=== PATIENT | male | born 1950 | race Caucasian/White ===

== ENCOUNTER 2019-10-19 08:32 | Observation (INO) ==
[2019-10-19] MEDS ORDERED: ZOFRAN INJ 4 MG VIAL IVP PRN (10:00)
[2019-10-19] MEDS ORDERED: NS 1000 ML 1,000 ML IV ONE (10:00)
[2019-10-19] MEDS ORDERED: NS 1000 ML 1,000 ML ONE ×2 (10:01→11:29)
[2019-10-19 10:28] LABS: BASOPHILS % (AUTO) 0.3 % (0.2-1.0); HEMATOCRIT 40.5 % (42.0-54.0); HEMOGLOBIN 13.7 g/dL (13.5-18.0); LYMPHOCYTES # (AUTO) 0.6 X10^3/uL (1.3-2.9); LYMPHOCYTES % (AUTO) 17.9 % (21.0-51.0); MEAN CORPUSCULAR HEMOGLOBIN 29.7 pg (27.0-34.0); MEAN CORPUSCULAR HGB CONC 33.8 g/dL (33.0-35.0); MEAN CORPUSCULAR VOLUME 87.8 fL (80.0-100.0); MEAN PLATELET VOLUME 6.9 fL (7.4-11.0); MONOCYTES # (AUTO) 0.2 x10^3/uL (0.3-0.8); MONOCYTES % (AUTO) 6.8 % (0.0-13.0); NEUTROPHILS # (AUTO) 2.6 x10^3/uL (2.2-4.8); PLATELET COUNT 113 X10^3/uL (150.0-450.0); RED BLOOD COUNT 4.61 X10^6/uL (4.7-6.0); RED CELL DISTRIBUTION WIDTH 13.5 % (11.6-16.5); WHITE BLOOD COUNT 3.4 X10^3/uL (3.6-10.0)
[2019-10-19 10:39] LABS: ALANINE AMINOTRANSFERASE 21 Units/L (12-78); ALBUMIN 3.1 g/dL (3.4-5.0); ALKALINE PHOSPHATASE 58 Units/L (46-116); ASPARTATE AMINO TRANSFERASE 21 Units/L (15-37); BLOOD UREA NITROGEN 13 mg/dL (7-18); CALCIUM 8.3 mg/dL (8.5-10.1); CHLORIDE 105 mmol/L (98-107); CREATININE 1.07 mg/dL (0.70-1.30); SODIUM 139 mmol/L (136-145); TOTAL PROTEIN 6.4 g/dL (6.4-8.2); eGFR NON BLACK RACES > 60 (>60)
[2019-10-19 10:49] VITALS: BMI 28.0
[2019-10-19] MEDS ORDERED: PREVNAR 13 IM ONE (10:49)
--- NOTE | 2019-10-19 11:20 | RAD ---
HISTORYfever, weakness onset a few weeksSTUDYAcute abdominal series, four viewsCOMPARISONNoneFINDINGSThe heart size is normal and the descending aorta is tortuous. The lungs are grossly clear. There is no effusion.The bowel gas pattern is unremarkable. There is no free air or fluid level or abnormal soft tissue calcification. There are mild degenerative osteophytes in the lumbar spine.IMPRESSIONNo acute diseaseElectronically signed by: FREDERICK DUVAL (Oct 19, 2019 11:19:45)
[2019-10-19] MEDS: NS 1000 ML 1,000 ML IV SCH ×3 (11:34→22:15)
[2019-10-19] MEDS: TYLENOL 325 MG TAB PO PRN (17:10)
[2019-10-20 00:54] LABS: BILIRUBIN,URINE NEGATIVE (NEGATIVE); BLOOD/HEMOGLOBIN,URINE NEGATIVE (NEGATIVE); GLUCOSE, URINE NEGATIVE (NEGATIVE); KETONES,URINE NEGATIVE (NEGATIVE); LEUKOCYTE ESTERASE ,URINE NEGATIVE (NEGATIVE); NITRITES,URINE NEGATIVE (NEGATIVE); PH,URINE 6.5 (5.0 - 8.0); PROTEIN,URINE NEGATIVE (NEGATIVE); UROBILINOGEN,URINE NORMAL (NORMAL)
[2019-10-20] MEDS: TYLENOL 325 MG TAB PO PRN ×2 (00:56→13:00)
[2019-10-20 01:04] LABS: APPEARANCE,URINE CLEAR (CLEAR); COLOR,URINE YELLOW (YELLOW)
[2019-10-20] MEDS: NS 1000 ML 1,000 ML IV SCH ×5 (04:23→22:00)
[2019-10-20 05:10] LABS: ABG BASE EXCESS 0.8 mmol/L (-2.0-2.0)
[2019-10-20 05:11] LABS: ABG ALLEN TEST POS
[2019-10-20 05:14] LABS: BASOPHILS % (AUTO) 0.4 % (0.2-1.0); EOSINOPHILS % (AUTO) 0.1 % (0.9-2.9); HEMATOCRIT 34.6 % (42.0-54.0); HEMOGLOBIN 11.8 g/dL (13.5-18.0); LYMPHOCYTES # (AUTO) 0.8 X10^3/uL (1.3-2.9); LYMPHOCYTES % (AUTO) 21.7 % (21.0-51.0); MEAN CORPUSCULAR HEMOGLOBIN 30.2 pg (27.0-34.0); MEAN CORPUSCULAR HGB CONC 34.2 g/dL (33.0-35.0); MEAN CORPUSCULAR VOLUME 88.2 fL (80.0-100.0); MEAN PLATELET VOLUME 7.4 fL (7.4-11.0); MONOCYTES # (AUTO) 0.2 x10^3/uL (0.3-0.8); NEUTROPHILS # (AUTO) 2.7 x10^3/uL (2.2-4.8); NEUTROPHILS % (AUTO) 72.8 % (42.0-75.0); PLATELET COUNT 96 X10^3/uL (150.0-450.0); RED BLOOD COUNT 3.92 X10^6/uL (4.7-6.0); RED CELL DISTRIBUTION WIDTH 13.5 % (11.6-16.5); WHITE BLOOD COUNT 3.7 X10^3/uL (3.6-10.0)
[2019-10-20 05:30] LABS: ALANINE AMINOTRANSFERASE 21 Units/L (12-78); ALBUMIN 2.4 g/dL (3.4-5.0); ALKALINE PHOSPHATASE 48 Units/L (46-116); ASPARTATE AMINO TRANSFERASE 22 Units/L (15-37); BLOOD UREA NITROGEN 9 mg/dL (7-18); CALCIUM 7.7 mg/dL (8.5-10.1); CARBON DIOXIDE 25.1 mmol/L (21-32); CHLORIDE 109 mmol/L (98-107); CREATININE 0.91 mg/dL (0.70-1.30); SODIUM 141 mmol/L (136-145); TOTAL PROTEIN 5.4 g/dL (6.4-8.2); eGFR NON BLACK RACES > 60 (>60)
--- NOTE | 2019-10-20 06:17 | RAD ---
HISTORYFeverSTUDYChest AP portableCOMPARISONNoneFINDINGSThe heart is within normal limits in size. The alissa are normal. The lung goins are clear. No pleural effusions are identified. Bony thorax is unremarkable.IMPRESSIONNo significant abnormality identifiedElectronically signed by: JESUS TELLO (Oct 20, 2019 06:16:21)
[2019-10-20] MEDS: PULMICORT NEB TX 0.5 MG NEB SCH ×2 (08:58→20:55)
[2019-10-20] MEDS: DUONEB 0.5 MG/3 MG (3 mL) NEB SCH ×4 (08:58→20:54)
--- NOTE | 2019-10-20 09:04 | DR.H&P ---
H&P - History & Physical for Day of: H&P Date: 10/19/19 - Chief Complaint Chief Complaint: FEVER, WEAKNESS, BODY ACHES, HYPOTENSION - History of Present Illness History of Present Illness: IS A 69 YEAR OLD WHITE MALE, PATIENT OF [facility]. DEL CONSULTED US FOR DIRECT ADMISSION DUE TO FEVER, COUGH, SHORTNESS OF BREATH, WEAKNESS, BODY ACHES, AND HYPOTENSION. HIS BLOOD PRESSURE IN THE OFFICE WAS NOTED TO BE 60s/40s. SYMPTOMS STARTED APPROXIMATELY FOUR DAYS PRIOR AND HAVE PERSISTENTLY WORSENED. HIS PMH INCLUDES: GERD, OSTEOARTHRITIS, AND HAND SURGERY. ON ARRIVAL TO THE HOSPITAL, VITALS WERE 99.3-41-65-20-106/68. LABS WERE OBTAINED. ABNORMAL LAB VALUES INCLUDE THE FOLLOWING: WBC 3.4, RBC 4.61, HCT 40.5, PLT COUNT 113, GLUCOSE 101, CALCIUM 8.3, ALBUMIN 3.1. COVID-19 POSITIVE. AN ACUTE ABDOMEN SERIES WAS OBTAINED AND REVEALED: No acute disease. A CHEST XRAY WAS OBTAINED AND REVEALED: No significant abnormality identified. WE WILL START HIM ON NORMAL SALINE AT 125 ML/HR, LEVAQUIN 500MG IV DAILY, ZOFRAN 4MG IV Q4H PRN, DUONEBS QID, PULMICORT NEBS BID. WE WILL ADMINISTER A ONE LITER NORMAL SALINE BOLUS. OTHERWISE, WE WILL FOLLOW UP WITH AM LABS, CHEST XRAY, AND CONTINUE TO MONITOR. - Past Medical History Past Medical History: Arthritis, GERD - Past Surgical History Surgical History: Ortho Surgery Additional Surgical History: HAND SURGERY - Family History Family Medical History: Cancer, Hypertension - Social History Does any household member use tobacco: No Alcohol Use: None Drug Use: None - Medications Home Medications: No Known Drug Allergies Allergy (Verified 10/19/19 10:49) CONTINUE taking the following medications NK 10/19/19 [History] - Review of Systems Constitutional: See HPI, Fever, Chills, Weakness Eyes: No Symptoms Reported ENT: No Symptoms Reported Respiratory: Cough, Shortness of Breath Cardiovascular: No Symptoms Reported Gastrointestinal: No Symptoms Reported Genitourinary: No Symptoms Reported Musculoskeletal: No Symptoms Reported Skin: No Symptoms Reported Neurological: Weakness - Physical Exam Vital Signs: Temperature 100 F Pulse Rate 63 Respiratory Rate 19 Blood Pressure 111/56 O2 Sat by Pulse Oximetry 95 Oriented: Normal Eyes: Normal Ear: Normal Nose: Normal Throat: Normal Respiratory: Diminished Throughout Cardiovascular: Normal : Normal Auscultation: Bowel Sounds: Normal Palpation: Normal Tenderness: Normal Skin: Normal Musculoskeletal: Normal Psychiatric: Normal Mood Description: Calm Affect: Normal Speech Pattern: Clear - Assessment/Plan (1) COVID-19 Status: Acute Plan: ADMIT, NORMAL SALINE AT 125 ML/HR, LEVAQUIN 500MG IV DAILY, ZOFRAN 4MG IV Q4H PRN, DUONEBS QID, PULMICORT NEBS BID (2) Acute bronchitis Qualifiers: Bronchitis organism: unspecified organism Qualified Code(s): J20.9 - Acute bronchitis, unspecified Status: Acute (3) Hypotension Qualifiers: Hypotension type: hypotension due to hypovolemia Qualified Code(s): I95.89 - Other hypotension; E86.1 - Hypovolemia Status: Acute (4) Weakness Status: Acute (5) Fever Qualifiers: Fever type: unspecified Qualified Code(s): R50.9 - Fever, unspecified Status: Acute - Allergies Allergies/Adverse Reactions: Allergies Allergy/AdvReac Type Severity Reaction Status Date / Time No Known Drug Allergies Allergy Verified 10/19/19 10:49
[2019-10-20] MEDS: LEVAQUIN PREMIX IV 500 MG 500 MG/100 ML BAG IV SCH (10:15)
[2019-10-20] MEDS ORDERED: MOTRIN TAB 800 MG PO ONE (15:28)
[2019-10-20] MEDS: MOTRIN TAB 800 MG PO PRN (15:35)
[2019-10-20] MEDS: LOVENOX INJ 40 MG SYR SC SCH (22:02)
[2019-10-21] MEDS: NS 1000 ML 1,000 ML IV SCH ×4 (02:24→18:10)
[2019-10-21 05:27] LABS: BASOPHILS % (AUTO) 0.2 % (0.2-1.0); EOSINOPHILS % (AUTO) 0.1 % (0.9-2.9); HEMATOCRIT 33.6 % (42.0-54.0); HEMOGLOBIN 11.5 g/dL (13.5-18.0); LYMPHOCYTES # (AUTO) 0.6 X10^3/uL (1.3-2.9); LYMPHOCYTES % (AUTO) 14.7 % (21.0-51.0); MEAN CORPUSCULAR HEMOGLOBIN 30.3 pg (27.0-34.0); MEAN CORPUSCULAR HGB CONC 34.4 g/dL (33.0-35.0); MEAN CORPUSCULAR VOLUME 88.1 fL (80.0-100.0); MEAN PLATELET VOLUME 7.6 fL (7.4-11.0); MONOCYTES # (AUTO) 0.3 x10^3/uL (0.3-0.8); MONOCYTES % (AUTO) 7.7 % (0.0-13.0); NEUTROPHILS # (AUTO) 3.4 x10^3/uL (2.2-4.8); NEUTROPHILS % (AUTO) 77.3 % (42.0-75.0); PLATELET COUNT 106 X10^3/uL (150.0-450.0); RED BLOOD COUNT 3.81 X10^6/uL (4.7-6.0); RED CELL DISTRIBUTION WIDTH 13.9 % (11.6-16.5); WHITE BLOOD COUNT 4.3 X10^3/uL (3.6-10.0)
[2019-10-21 05:32] LABS: ALANINE AMINOTRANSFERASE 29 Units/L (12-78); ALBUMIN 2.2 g/dL (3.4-5.0); ALKALINE PHOSPHATASE 53 Units/L (46-116); ASPARTATE AMINO TRANSFERASE 29 Units/L (15-37); BLOOD UREA NITROGEN 7 mg/dL (7-18); CALCIUM 7.5 mg/dL (8.5-10.1); CARBON DIOXIDE 23.6 mmol/L (21-32); CHLORIDE 110 mmol/L (98-107); COR CA(FOR HYPOALB) 8.9 mg/dL (8.5-10.1); COR NA(FOR HYPERGLY) 142 mmol/L (136-145); CREATININE 0.79 mg/dL (0.70-1.30); SODIUM 142 mmol/L (136-145); TOTAL PROTEIN 5.3 g/dL (6.4-8.2); eGFR NON BLACK RACES > 60 (>60)
[2019-10-21] MEDS: LEVAQUIN PREMIX IV 500 MG 500 MG/100 ML BAG IV SCH (08:01)
[2019-10-21] MEDS: MOTRIN TAB 800 MG PO PRN (08:02)
[2019-10-21] MEDS: DUONEB 0.5 MG/3 MG (3 mL) NEB SCH ×3 (09:30→18:13)
[2019-10-21] MEDS: PULMICORT NEB TX 0.5 MG NEB SCH ×2 (09:30→21:20)
[2019-10-21] MEDS ORDERED: REMDESIVIR (INVESTIGATIONAL DRUG GS-5734) 200 MG in NS 250 ML IV 250 ML IV NR (09:30)
--- NOTE | 2019-10-21 11:40 | PCM.PROG ---
Progress Note - Progress Note for Day of Date of Exam: 10/20/19 - Subjective Subjective: IS BEING TREATED FOR COVID-19, ACUTE BRONCHITIS, HYPOTENSION, WEAKNESS, AND FEVER. TODAY, HE IS ALERT AND ORIENTED, LYING IN BED ON MORNING ROUNDS. HE CONTINUES WITH COMPLAINTS OF COUGH, WEAKNESS, AND SHORTNESS OF BREATH. HE RECEIVED A NORMAL SALINE BOLUS AND IV FLUIDS THROUGHOUT THE NIGHT. HIS BLOOD PRESSURE HAS SLIGHTLY IMROVED. ON EXAMINATION, HEART IS REGULAR IN RATE AND RHYTHM. BILATERAL LUNGS ARE NOTED WITH SCATTERED WHEEZING THROUGHOUT. ABDOMEN IS ROUND, SOFT, AND NON-TENDER WITH NORMAL BOWEL SOUNDS NOTED IN ALL QUADRNATS. HIS VITALS THIS MORNING ARE: 99.5-67-16-98%-119/69. LABS WERE OBTAINED. ABNORMAL LAB VALUES INCLUDE THE FOLLOWING: RBC 3.92, HGB 11.8, HCT 34.6, PLT COUNT 96, CHLORIDE 109, GLUCOSE 102, CALCIUM 7.7, FERRITIN 426, CRP 70.60, TOTAL PROTEIN 5.4, ALBUMIN 2.4. BLOOD CULTURES ARE PENDING. HE IS CURRENTLY RECEIVING NORMAL SALINE AT 125 ML/HR, LEVAQUIN 500MG IV DAILY, ZOFRAN 4MG IV Q4H PRN, DUONEBS QID, PULMICORT NEBS BID, LOVENOX 40MG SC DAILY. WE WILL CONTINUE WITH CURRENT PLAN OF CARE TODAY. OTHERWISE, WE WILL FOLLOW UP WITH AM LABS AND CHEST XRAY AND CONTINUE TO MONITOR. - Past Medical Family Social History Past Med/Fam/Surg Hx: No changes since H&P Allergies: Allergies No Known Drug Allergies Allergy (Verified 10/19/19 10:49) - Review of Systems ROS: No change since H&P - Vital Signs and I&O's Vital Signs: Temperature 99.0 F Pulse Rate 55 Respiratory Rate 21 Blood Pressure 115/70 O2 Sat by Pulse Oximetry 95 Intake and Output: Intake & Output 10/18/19 10/19/19 10/20/19 10/21/19 11:59 11:59 11:59 11:59 Intake Total 2880 / 2880 5000 / 5000 Balance 2880 / 2880 5000 / 5000 - Physical Exam Oriented: Normal Eyes: Normal Ear: Normal Nose: Normal Throat: Normal Respiratory: Generalized, Wheezes Cardiovascular: Normal : Normal Auscultation: Bowel Sounds: Normal Palpation: Normal Tenderness: Normal Skin: Normal Musculoskeletal: Normal Psychiatric: Normal Mood Description: Calm Affect: Normal Speech Pattern: Clear, Appropriate - Laboratory and Diagnostics Result Diagrams: 10/21/19 04:58 10/21/19 04:58 Labs: Laboratory WBC 4.3 X10^3/uL (3.6-10.0) 10/21/19 04:58 RBC 3.81 X10^6/uL (4.7-6.0) L 10/21/19 04:58 Hgb 11.5 g/dL (13.5-18.0) L 10/21/19 04:58 Hct 33.6 % (42.0-54.0) L 10/21/19 04:58 MCV 88.1 fL (80.0-100.0) 10/21/19 04:58 MCH 30.3 pg (27.0-34.0) 10/21/19 04:58 MCHC 34.4 g/dL (33.0-35.0) 10/21/19 04:58 RDW 13.9 % (11.6-16.5) 10/21/19 04:58 Plt Count 106 X10^3/uL (150.0-450.0) L 10/21/19 04:58 MPV 7.6 fL (7.4-11.0) 10/21/19 04:58 Neut % (Auto) 77.3 % (42.0-75.0) H 10/21/19 04:58 Lymph % (Auto) 14.7 % (21.0-51.0) L 10/21/19 04:58 [place] % (Auto) 7.7 % (0.0-13.0) 10/21/19 04:58 Eos % (Auto) 0.1 % (0.9-2.9) L 10/21/19 04:58 Baso % (Auto) 0.2 % (0.2-1.0) 10/21/19 04:58 Neut # (Auto) 3.4 x10^3/uL (2.2-4.8) 10/21/19 04:58 Lymph # (Auto) 0.6 X10^3/uL (1.3-2.9) L 10/21/19 04:58 [place] # (Auto) 0.3 x10^3/uL (0.3-0.8) 10/21/19 04:58 Eos # (Auto) 0.0 x10^3/uL (0.0-0.2) 10/21/19 04:58 Baso # (Auto) 0.0 X10^3/uL (0.0-0.1) 10/21/19 04:58 Absolute Nucleated RBC 0.0 /100WBC 10/21/19 04:58 Sample Site Rrad 10/20/19 05:03 ABG pH 7.470 (7.35-7.45) H 10/20/19 05:03 ABG pCO2 33.0 mmHg (35.0-45.0) L 10/20/19 05:03 ABG pO2 77.0 mmHg (80.0-100.0) L 10/20/19 05:03 ABG HCO3 24.0 mmol/L (22-26) 10/20/19 05:03 ABG O2 Saturation 96.0 % (90-100) 10/20/19 05:03 ABG Base Excess 0.8 mmol/L (-2.0-2.0) 10/20/19 05:03 Richard Test Pos 10/20/19 05:03 A-a Gradient 31.0 mmHg 10/20/19 05:03 FiO2 21.0 10/20/19 05:03 Blood Gas Comments Dominga abg well-mtf 10/20/19 05:03 Sodium 142 mmol/L (136-145) 10/21/19 04:58 Corrected Sodium 142 mmol/L (136-145) 10/21/19 04:58 Potassium 3.8 mmol/L (3.5-5.1) 10/21/19 04:58 Chloride 110 mmol/L (98-107) H 10/21/19 04:58 Carbon Dioxide 23.6 mmol/L (21-32) 10/21/19 04:58 BUN 7 mg/dL (7-18) 10/21/19 04:58 Creatinine 0.79 mg/dL (0.70-1.30) 10/21/19 04:58 Est GFR (MDRD) Af Amer > 60 (>60) 10/21/19 04:58 Est GFR (MDRD) Non-Af > 60 (>60) 10/21/19 04:58 Glucose 116 mg/dL (65-99) H 10/21/19 04:58 Calcium 7.5 mg/dL (8.5-10.1) L 10/21/19 04:58 Corrected Calcium 8.9 mg/dL (8.5-10.1) 10/21/19 04:58 Ferritin 473 ng/mL (26-388) H 10/21/19 04:58 Total Bilirubin 0.30 mg/dL (0.2-1.0) 10/21/19 04:58 AST 29 Units/L (15-37) 10/21/19 04:58 ALT 29 Units/L (12-78) 10/21/19 04:58 Alkaline Phosphatase 53 Units/L (46-116) 10/21/19 04:58 C-Reactive Protein 102.80 mg/L (0-3.0) H 10/21/19 04:58 Total Protein 5.3 g/dL (6.4-8.2) L 10/21/19 04:58 Albumin 2.2 g/dL (3.4-5.0) L 10/21/19 04:58 Globulin 3.1 g/dL (2.5-4.5) 10/21/19 04:58 Albumin/Globulin Ratio 0.7 Ratio (1.1-2.1) L 10/21/19 04:58 Specimen Type Clean catch urine 10/19/19 00:44 Urine Color Yellow (YELLOW) 10/19/19 00:44 Urine Appearance Clear (CLEAR) 10/19/19 00:44 Urine pH 6.5 (5.0 - 8.0) 10/19/19 00:44 Ur Specific [place] 1.010 (1.000-1.030) 10/19/19 00:44 Urine Protein Negative (NEGATIVE) 10/19/19 00:44 Urine Glucose (UA) Negative (NEGATIVE) 10/19/19 00:44 Urine Ketones Negative (NEGATIVE) 10/19/19 00:44 Urine Occult Blood Negative (NEGATIVE) 10/19/19 00:44 Urine Nitrite Negative (NEGATIVE) 10/19/19 00:44 Urine Bilirubin Negative (NEGATIVE) 10/19/19 00:44 Urine Urobilinogen Normal (NORMAL) 10/19/19 00:44 Ur Leukocyte Esterase Negative (NEGATIVE) 10/19/19 00:44 Stool Description 200g,brown,soft form 10/20/19 22:00 Stl Occult Blood (IFOB) Negative (NEGATIVE) 10/20/19 22:00 SARS-CoV-2 (PCR) Cancelled 10/19/19 10:26 SARS-CoV-2 (PCR) Positive (NEGATIVE) A 10/19/19 10:26 - Plan (1) COVID-19 Status: Acute Plan: NORMAL SALINE AT 125 ML/HR, LEVAQUIN 500MG IV DAILY, LOVENOX 40MG SC DAILY, ZOFRAN 4MG IV Q4H PRN, DUONEBS QID, PULMICORT NEBS BID (2) Acute bronchitis Status: Acute Qualifiers: Bronchitis organism: unspecified organism Qualified Code(s): J20.9 - Acute bronchitis, unspecified (3) Hypotension Status: Acute Qualifiers: Hypotension type: hypotension due to hypovolemia Qualified Code(s): I95.89 - Other hypotension; E86.1 - Hypovolemia (4) Weakness Status: Acute (5) Fever Status: Acute Qualifiers: Fever type: unspecified Qualified Code(s): R50.9 - Fever, unspecified
--- NOTE | 2019-10-21 11:44 | PCM.PROG ---
Progress Note - Progress Note for Day of Date of Exam: 10/21/19 - Subjective Subjective: IS BEING TREATED FOR COVID-19, ACUTE BRONCHITIS, HYPOTENSION, WEAKNESS, AND FEVER. TODAY, HE IS ALERT AND ORIENTED, LYING IN BED ON MORNING ROUNDS. HE CONTINUES WITH COMPLAINTS OF INCREASED COUGH AND SHORTNESS OF BREATH. HE HAS BEEN FEBRILE THROUGHOUT THE NIGHT. HE CONTINUED WITH H YPOTENSION THROUGHOUT THE DAY YESTERDAY. ON EXAMINATION TODAY, HEART IS REGULAR IN RATE AND RHYTHM. BILATERAL LUNGS CONTINUE WITH SCATTERED WHEEZING THROUGHOUT. ABDOMEN IS ROUND, SOFT, AND NON-TENDER WITH NORMAL BOWEL SOUNDS NOTED IN ALL QUADRNATS. HIS VITALS THIS MORNING ARE: 99.5-55-20-95%-115/70. LABS WERE OBTAINED. ABNORMAL LAB VALUES INCLUDE THE FOLLOWING: RBC 3.81, HGB 11.5, HCT 33.6, PLT COUNT 106, CHLORIDE 110, GLUCOSE 116, CALCIUM 7.5, FERRITIN 473, CRP INCREASED TO 102.8, TOTAL PROTEIN 5.3, ALBUMIN 2.2. BLOOD CULTURES ARE PENDING. HE IS CURRENTLY RECEIVING NORMAL SALINE AT 125 ML/HR, LEVAQUIN 500MG IV DAILY, ZOFRAN 4MG IV Q4H PRN, DUONEBS QID, PULMICORT NEBS BID, LOVENOX 40MG SC DAILY. TODAY, WE WILL START REMDESIVIR 200MG IV X 1 DOSE, THEN 100MG IV DAILY. OTHERWISE, WE WILL CONTINUE WITH CURRENT PLAN OF CARE. WE WILL FOLLOW UP WITH AM LABS AND CHEST XRAY AND CONTINUE TO MONITOR. - Past Medical Family Social History Past Med/Fam/Surg Hx: No changes since H&P Allergies: Allergies No Known Drug Allergies Allergy (Verified 10/19/19 10:49) - Review of Systems ROS: No change since H&P - Vital Signs and I&O's Vital Signs: Temperature 99.0 F Pulse Rate 55 Respiratory Rate 21 Blood Pressure 115/70 O2 Sat by Pulse Oximetry 95 Intake and Output: Intake & Output 10/18/19 10/19/19 10/20/19 10/21/19 11:59 11:59 11:59 11:59 Intake Total 2880 / 2880 5000 / 5000 Balance 2880 / 2880 5000 / 5000 - Physical Exam Oriented: Normal Eyes: Normal Ear: Normal Nose: Normal Throat: Normal Respiratory: Generalized, Wheezes Cardiovascular: Normal : Normal Auscultation: Bowel Sounds: Normal Palpation: Normal Tenderness: Normal Skin: Normal Musculoskeletal: Normal Psychiatric: Normal Mood Description: Calm Affect: Normal Speech Pattern: Clear, Appropriate - Laboratory and Diagnostics Result Diagrams: 10/21/19 04:58 10/21/19 04:58 Labs: Laboratory WBC 4.3 X10^3/uL (3.6-10.0) 10/21/19 04:58 RBC 3.81 X10^6/uL (4.7-6.0) L 10/21/19 04:58 Hgb 11.5 g/dL (13.5-18.0) L 10/21/19 04:58 Hct 33.6 % (42.0-54.0) L 10/21/19 04:58 MCV 88.1 fL (80.0-100.0) 10/21/19 04:58 MCH 30.3 pg (27.0-34.0) 10/21/19 04:58 MCHC 34.4 g/dL (33.0-35.0) 10/21/19 04:58 RDW 13.9 % (11.6-16.5) 10/21/19 04:58 Plt Count 106 X10^3/uL (150.0-450.0) L 10/21/19 04:58 MPV 7.6 fL (7.4-11.0) 10/21/19 04:58 Neut % (Auto) 77.3 % (42.0-75.0) H 10/21/19 04:58 Lymph % (Auto) 14.7 % (21.0-51.0) L 10/21/19 04:58 [place] % (Auto) 7.7 % (0.0-13.0) 10/21/19 04:58 Eos % (Auto) 0.1 % (0.9-2.9) L 10/21/19 04:58 Baso % (Auto) 0.2 % (0.2-1.0) 10/21/19 04:58 Neut # (Auto) 3.4 x10^3/uL (2.2-4.8) 10/21/19 04:58 Lymph # (Auto) 0.6 X10^3/uL (1.3-2.9) L 10/21/19 04:58 [place] # (Auto) 0.3 x10^3/uL (0.3-0.8) 10/21/19 04:58 Eos # (Auto) 0.0 x10^3/uL (0.0-0.2) 10/21/19 04:58 Baso # (Auto) 0.0 X10^3/uL (0.0-0.1) 10/21/19 04:58 Absolute Nucleated RBC 0.0 /100WBC 10/21/19 04:58 Sample Site Rrad 10/20/19 05:03 ABG pH 7.470 (7.35-7.45) H 10/20/19 05:03 ABG pCO2 33.0 mmHg (35.0-45.0) L 10/20/19 05:03 ABG pO2 77.0 mmHg (80.0-100.0) L 10/20/19 05:03 ABG HCO3 24.0 mmol/L (22-26) 10/20/19 05:03 ABG O2 Saturation 96.0 % (90-100) 10/20/19 05:03 ABG Base Excess 0.8 mmol/L (-2.0-2.0) 10/20/19 05:03 Richard Test Pos 10/20/19 05:03 A-a Gradient 31.0 mmHg 10/20/19 05:03 FiO2 21.0 10/20/19 05:03 Blood Gas Comments Dominga abg well-mtf 10/20/19 05:03 Sodium 142 mmol/L (136-145) 10/21/19 04:58 Corrected Sodium 142 mmol/L (136-145) 10/21/19 04:58 Potassium 3.8 mmol/L (3.5-5.1) 10/21/19 04:58 Chloride 110 mmol/L (98-107) H 10/21/19 04:58 Carbon Dioxide 23.6 mmol/L (21-32) 10/21/19 04:58 BUN 7 mg/dL (7-18) 10/21/19 04:58 Creatinine 0.79 mg/dL (0.70-1.30) 10/21/19 04:58 Est GFR (MDRD) Af Amer > 60 (>60) 10/21/19 04:58 Est GFR (MDRD) Non-Af > 60 (>60) 10/21/19 04:58 Glucose 116 mg/dL (65-99) H 10/21/19 04:58 Calcium 7.5 mg/dL (8.5-10.1) L 10/21/19 04:58 Corrected Calcium 8.9 mg/dL (8.5-10.1) 10/21/19 04:58 Ferritin 473 ng/mL (26-388) H 10/21/19 04:58 Total Bilirubin 0.30 mg/dL (0.2-1.0) 10/21/19 04:58 AST 29 Units/L (15-37) 10/21/19 04:58 ALT 29 Units/L (12-78) 10/21/19 04:58 Alkaline Phosphatase 53 Units/L (46-116) 10/21/19 04:58 C-Reactive Protein 102.80 mg/L (0-3.0) H 10/21/19 04:58 Total Protein 5.3 g/dL (6.4-8.2) L 10/21/19 04:58 Albumin 2.2 g/dL (3.4-5.0) L 10/21/19 04:58 Globulin 3.1 g/dL (2.5-4.5) 10/21/19 04:58 Albumin/Globulin Ratio 0.7 Ratio (1.1-2.1) L 10/21/19 04:58 Specimen Type Clean catch urine 10/19/19 00:44 Urine Color Yellow (YELLOW) 10/19/19 00:44 Urine Appearance Clear (CLEAR) 10/19/19 00:44 Urine pH 6.5 (5.0 - 8.0) 10/19/19 00:44 Ur Specific [place] 1.010 (1.000-1.030) 10/19/19 00:44 Urine Protein Negative (NEGATIVE) 10/19/19 00:44 Urine Glucose (UA) Negative (NEGATIVE) 10/19/19 00:44 Urine Ketones Negative (NEGATIVE) 10/19/19 00:44 Urine Occult Blood Negative (NEGATIVE) 10/19/19 00:44 Urine Nitrite Negative (NEGATIVE) 10/19/19 00:44 Urine Bilirubin Negative (NEGATIVE) 10/19/19 00:44 Urine Urobilinogen Normal (NORMAL) 10/19/19 00:44 Ur Leukocyte Esterase Negative (NEGATIVE) 10/19/19 00:44 Stool Description 200g,brown,soft form 10/20/19 22:00 Stl Occult Blood (IFOB) Negative (NEGATIVE) 10/20/19 22:00 SARS-CoV-2 (PCR) Cancelled 10/19/19 10:26 SARS-CoV-2 (PCR) Positive (NEGATIVE) A 10/19/19 10:26 - Plan (1) COVID-19 Status: Acute Plan: NORMAL SALINE AT 125 ML/HR, REMDESIVIR 200MG IV X 1 DOSE, THEN 100MG IV DAILY, LEVAQUIN 500MG IV DAILY, LOVENOX 40MG SC DAILY, ZOFRAN 4MG IV Q4H PRN, DUONEBS QID, PULMICORT NEBS BID (2) Acute bronchitis Status: Acute Qualifiers: Bronchitis organism: unspecified organism Qualified Code(s): J20.9 - Acute bronchitis, unspecified (3) Hypotension Status: Acute Qualifiers: Hypotension type: hypotension due to hypovolemia Qualified Code(s): I95.89 - Other hypotension; E86.1 - Hypovolemia (4) Weakness Status: Acute (5) Fever Status: Acute Qualifiers: Fever type: unspecified Qualified Code(s): R50.9 - Fever, unspecified
--- NOTE | 2019-10-21 11:45 | RAD ---
HISTORYSOB,COVID 19STUDYPortable AP chestCOMPARISONYesterday October 19FINDINGSThe heart size is normal. There is no effusion or edema. There is minimal subsegmental atelectasis at the right lung base. There are increasing patchy ground-glass opacities in the lungs, most prominent in the left lower lobe.IMPRESSIONIncreasing mild ground-glass opacities in the lungs left more than right that may be from a pneumonitis from COVID-19Electronically signed by: FREDERICK DUVAL (Oct 21, 2019 11:44:53)
[2019-10-21] MEDS ORDERED: DUONEB 0.5 MG/3 MG (3 mL) NEB PRN (14:33)
[2019-10-21] MEDS: LOVENOX INJ 40 MG SYR SC SCH (21:13)
[2019-10-21] MEDS: PROVENTIL NEB TX 0.083% 2.5MG/ 3ML NEB SCH (21:20)
[2019-10-21] MEDS: SOLU-Medrol 40 MG VIAL IVP SCH (21:39)
[2019-10-22] MEDS: NS 1000 ML 1,000 ML IV SCH ×4 (01:10→20:19)
[2019-10-22 04:50] LABS: ABG ALLEN TEST POS; ABG BASE EXCESS 0.2 mmol/L (-2.0-2.0); ABG HCO3 23.5 mmol/L (22-26)
[2019-10-22] MEDS: SOLU-Medrol 40 MG VIAL IVP SCH ×3 (05:21→21:00)
[2019-10-22 05:25] LABS: BASOPHILS % (AUTO) 0 % (0.2-1.0); HEMATOCRIT 37.6 % (42.0-54.0); HEMOGLOBIN 12.6 g/dL (13.5-18.0); LYMPHOCYTES # (AUTO) 0.4 X10^3/uL (1.3-2.9); LYMPHOCYTES % (AUTO) 9.9 % (21.0-51.0); MEAN CORPUSCULAR HEMOGLOBIN 29.8 pg (27.0-34.0); MEAN CORPUSCULAR HGB CONC 33.6 g/dL (33.0-35.0); MEAN CORPUSCULAR VOLUME 88.7 fL (80.0-100.0); MEAN PLATELET VOLUME 7.5 fL (7.4-11.0); MONOCYTES # (AUTO) 0.2 x10^3/uL (0.3-0.8); MONOCYTES % (AUTO) 4.1 % (0.0-13.0); NEUTROPHILS # (AUTO) 3.6 x10^3/uL (2.2-4.8); PLATELET COUNT 157 X10^3/uL (150.0-450.0); RED BLOOD COUNT 4.24 X10^6/uL (4.7-6.0); RED CELL DISTRIBUTION WIDTH 13.9 % (11.6-16.5); WHITE BLOOD COUNT 4.2 X10^3/uL (3.6-10.0)
[2019-10-22 05:34] LABS: ALANINE AMINOTRANSFERASE 32 Units/L (12-78); ALBUMIN 2.4 g/dL (3.4-5.0); ALKALINE PHOSPHATASE 66 Units/L (46-116); ASPARTATE AMINO TRANSFERASE 27 Units/L (15-37); BLOOD UREA NITROGEN 8 mg/dL (7-18); CALCIUM 8.3 mg/dL (8.5-10.1); CARBON DIOXIDE 24.6 mmol/L (21-32); CHLORIDE 108 mmol/L (98-107); COR CA(FOR HYPOALB) 9.6 mg/dL (8.5-10.1); COR NA(FOR HYPERGLY) 144 mmol/L (136-145); CREATININE 0.79 mg/dL (0.70-1.30); SODIUM 142 mmol/L (136-145); TOTAL PROTEIN 6.1 g/dL (6.4-8.2); eGFR NON BLACK RACES > 60 (>60)
--- NOTE | 2019-10-22 06:17 | RAD ---
HISTORYSOBSTUDYCHEST, 1 [id number]/23/2020FINDINGSNo change from prior examination again demonstrating central peribronchial thickening and ground-glass opacities with a scattered peripheral consolidative process within both lungs. No pleural effusion or pneumothorax. Heart size is normal. No acute osseous abnormality.IMPRESSIONNo significant change in multifocal pneumonia.Electronically signed by: TATO BOYCE (Oct 22, 2019 06:17:08)
[2019-10-22] MEDS: LEVAQUIN PREMIX IV 500 MG 500 MG/100 ML BAG IV SCH (08:53)
[2019-10-22] MEDS: REMDESIVIR (INVESTIGATIONAL DRUG GS-5734) 100 MG in NS 250 ML IV 250 ML IV SCH (10:04)
[2019-10-22] MEDS: PROVENTIL NEB TX 0.083% 2.5MG/ 3ML NEB SCH ×2 (10:28→20:20)
[2019-10-22] MEDS: PULMICORT NEB TX 0.5 MG NEB SCH ×2 (10:28→20:20)
--- NOTE | 2019-10-22 11:11 | PCM.PROG ---
Progress Note - Progress Note for Day of Date of Exam: 10/22/19 - Subjective Subjective: IS BEING TREATED FOR COVID-19, ACUTE BRONCHITIS, HYPOTENSION, WEAKNESS, AND FEVER. TODAY, HE IS ALERT AND ORIENTED, LYING IN BED ON MORNING ROUNDS. HE CONTINUES WITH COMPLAINTS OF INCREASED COUGH AND SHORTNESS OF BREATH. HE HAS BEEN FEBRILE THROUGHOUT THE NIGHT. HE CONTINUED WITH H YPOTENSION THROUGHOUT THE DAY YESTERDAY. ON EXAMINATION TODAY, HEART IS REGULAR IN RATE AND RHYTHM. BILATERAL LUNGS CONTINUE WITH SCATTERED WHEEZING THROUGHOUT. ABDOMEN IS ROUND, SOFT, AND NON-TENDER WITH NORMAL BOWEL SOUNDS NOTED IN ALL QUADRNATS. HIS VITALS THIS MORNING ARE: 98.2-61-16-96%-139/79. LABS WERE OBTAINED. ABNORMAL LAB VALUES INCLUDE THE FOLLOWING: RBC 4.24, HCT 37.6, CHLORIDE 108, GLUCOSE 172, CALCIUM 8.3, FERRITIN 623, CRP 102.0, TOTAL PROTEIN 6.1, ALBUMIN 2.4. BLOOD CULTURES ARE PENDING. HE IS CURRENTLY RECEIVING NORMAL SALINE AT 125 ML/HR, REMDESIVIR 100MG IV DAILY, LEVAQUIN 500MG IV DAILY, SOLU- MEDROL 80MG IV Q8H, ZOFRAN 4MG IV Q4H PRN, DUONEBS QID, PULMICORT NEBS BID, LOVE NOX 40MG SC DAILY. WE WILL CONTINUE WITH CURRENT PLAN OF CARE TODAY. OTHERWISE, WE WILL FOLLOW UP WITH AM LABS AND CHEST XRAY AND CONTINUE TO MONITOR. - Past Medical Family Social History Past Med/Fam/Surg Hx: No changes since H&P Allergies: Allergies No Known Drug Allergies Allergy (Verified 10/19/19 10:49) - Review of Systems ROS: No change since H&P - Vital Signs and I&O's Vital Signs: Temperature 98.2 F Pulse Rate 61 Respiratory Rate 16 Blood Pressure 139/79 O2 Sat by Pulse Oximetry 96 Intake and Output: Intake & Output 10/19/19 10/20/19 10/21/19 10/22/19 11:59 11:59 11:59 11:59 Intake Total 2880 / 2880 5000 / 5000 2945 / 2945 Balance 2880 / 2880 5000 / 5000 2945 / 2945 - Physical Exam Oriented: Normal Eyes: Normal Ear: Normal Nose: Normal Throat: Normal Respiratory: Generalized, Wheezes Cardiovascular: Normal : Normal Auscultation: Bowel Sounds: Normal Tenderness: Normal Skin: Normal Musculoskeletal: Normal Psychiatric: Normal Mood Description: Calm Affect: Normal Speech Pattern: Clear, Appropriate - Laboratory and Diagnostics Result Diagrams: 10/22/19 04:08 10/22/19 04:08 Labs: Laboratory WBC 4.2 X10^3/uL (3.6-10.0) 10/22/19 04:08 RBC 4.24 X10^6/uL (4.7-6.0) L 10/22/19 04:08 Hgb 12.6 g/dL (13.5-18.0) L 10/22/19 04:08 Hct 37.6 % (42.0-54.0) L 10/22/19 04:08 MCV 88.7 fL (80.0-100.0) 10/22/19 04:08 MCH 29.8 pg (27.0-34.0) 10/22/19 04:08 MCHC 33.6 g/dL (33.0-35.0) 10/22/19 04:08 RDW 13.9 % (11.6-16.5) 10/22/19 04:08 Plt Count 157 X10^3/uL (150.0-450.0) 10/22/19 04:08 MPV 7.5 fL (7.4-11.0) 10/22/19 04:08 Neut % (Auto) 86.0 % (42.0-75.0) H 10/22/19 04:08 Lymph % (Auto) 9.9 % (21.0-51.0) L 10/22/19 04:08 [place] % (Auto) 4.1 % (0.0-13.0) 10/22/19 04:08 Eos % (Auto) 0.0 % (0.9-2.9) L 10/22/19 04:08 Baso % (Auto) 0 % (0.2-1.0) L 10/22/19 04:08 Neut # (Auto) 3.6 x10^3/uL (2.2-4.8) 10/22/19 04:08 Lymph # (Auto) 0.4 X10^3/uL (1.3-2.9) L 10/22/19 04:08 [place] # (Auto) 0.2 x10^3/uL (0.3-0.8) L 10/22/19 04:08 Eos # (Auto) 0.0 x10^3/uL (0.0-0.2) 10/22/19 04:08 Baso # (Auto) 0.0 X10^3/uL (0.0-0.1) 10/22/19 04:08 Absolute Nucleated RBC 0.0 /100WBC 10/22/19 04:08 Sample Site Lr 10/22/19 05:00 ABG pH 7.460 (7.35-7.45) H 10/22/19 05:00 ABG pCO2 33.0 mmHg (35.0-45.0) L 10/22/19 05:00 ABG pO2 74.0 mmHg (80.0-100.0) L 10/22/19 05:00 ABG HCO3 23.5 mmol/L (22-26) 10/22/19 05:00 ABG O2 Saturation 95.0 % (90-100) 10/22/19 05:00 ABG Base Excess 0.2 mmol/L (-2.0-2.0) 10/22/19 05:00 Richard Test Pos 10/22/19 05:00 A-a Gradient 34.0 mmHg 10/22/19 05:00 FiO2 21.0 10/22/19 05:00 Blood Gas Comments Dominga well ae 10/22/19 05:00 Sodium 142 mmol/L (136-145) 10/22/19 04:08 Corrected Sodium 144 mmol/L (136-145) 10/22/19 04:08 Potassium 4.2 mmol/L (3.5-5.1) 10/22/19 04:08 Chloride 108 mmol/L (98-107) H 10/22/19 04:08 Carbon Dioxide 24.6 mmol/L (21-32) 10/22/19 04:08 BUN 8 mg/dL (7-18) 10/22/19 04:08 Creatinine 0.79 mg/dL (0.70-1.30) 10/22/19 04:08 Est GFR (MDRD) Af Amer > 60 (>60) 10/22/19 04:08 Est GFR (MDRD) Non-Af > 60 (>60) 10/22/19 04:08 Glucose 172 mg/dL (65-99) H 10/22/19 04:08 Calcium 8.3 mg/dL (8.5-10.1) L 10/22/19 04:08 Corrected Calcium 9.6 mg/dL (8.5-10.1) 10/22/19 04:08 Ferritin 623 ng/mL (26-388) H 10/22/19 04:08 Total Bilirubin 0.40 mg/dL (0.2-1.0) 10/22/19 04:08 AST 27 Units/L (15-37) 10/22/19 04:08 ALT 32 Units/L (12-78) 10/22/19 04:08 Alkaline Phosphatase 66 Units/L (46-116) 10/22/19 04:08 C-Reactive Protein 102.00 mg/L (0-3.0) H 10/22/19 04:08 Total Protein 6.1 g/dL (6.4-8.2) L 10/22/19 04:08 Albumin 2.4 g/dL (3.4-5.0) L 10/22/19 04:08 Globulin 3.7 g/dL (2.5-4.5) 10/22/19 04:08 Albumin/Globulin Ratio 0.6 Ratio (1.1-2.1) L 10/22/19 04:08 Specimen Type Clean catch urine 10/19/19 00:44 Urine Color Yellow (YELLOW) 10/19/19 00:44 Urine Appearance Clear (CLEAR) 10/19/19 00:44 Urine pH 6.5 (5.0 - 8.0) 10/19/19 00:44 Ur Specific [place] 1.010 (1.000-1.030) 10/19/19 00:44 Urine Protein Negative (NEGATIVE) 10/19/19 00:44 Urine Glucose (UA) Negative (NEGATIVE) 10/19/19 00:44 Urine Ketones Negative (NEGATIVE) 10/19/19 00:44 Urine Occult Blood Negative (NEGATIVE) 10/19/19 00:44 Urine Nitrite Negative (NEGATIVE) 10/19/19 00:44 Urine Bilirubin Negative (NEGATIVE) 10/19/19 00:44 Urine Urobilinogen Normal (NORMAL) 10/19/19 00:44 Ur Leukocyte Esterase Negative (NEGATIVE) 10/19/19 00:44 Stool Description 200g,brown,soft form 10/20/19 22:00 Stl Occult Blood (IFOB) Negative (NEGATIVE) 10/20/19 22:00 SARS-CoV-2 (PCR) Cancelled 10/19/19 10:26 SARS-CoV-2 (PCR) Positive (NEGATIVE) A 10/19/19 10:26 - Plan (1) COVID-19 Status: Acute Plan: NORMAL SALINE AT 125 ML/HR, REMDESIVIR 100MG IV DAILY, LEVAQUIN 500MG IV DAILY, SOLU-MEDROL 80MG IV Q8H, LOVENOX 40MG SC DAILY, ZOFRAN 4MG IV Q4H PRN, DUONEBS QID, PULMICORT NEBS BID (2) Acute bronchitis Status: Acute Qualifiers: Bronchitis organism: unspecified organism Qualified Code(s): J20.9 - Acute bronchitis, unspecified (3) Hypotension Status: Acute Qualifiers: Hypotension type: hypotension due to hypovolemia Qualified Code(s): I95.89 - Other hypotension; E86.1 - Hypovolemia (4) Weakness Status: Acute (5) Fever Status: Acute Qualifiers: Fever type: unspecified Qualified Code(s): R50.9 - Fever, unspecified
[2019-10-22] MEDS: LOVENOX INJ 40 MG SYR SC SCH (20:17)
[2019-10-23] MEDS: NS 1000 ML 1,000 ML IV SCH ×2 (02:53→11:15)
[2019-10-23] MEDS: SOLU-Medrol 40 MG VIAL IVP SCH ×2 (05:00→13:55)
[2019-10-23 05:41] LABS: BASOPHILS % (AUTO) 0.1 % (0.2-1.0); HEMATOCRIT 36.4 % (42.0-54.0); HEMOGLOBIN 12.4 g/dL (13.5-18.0); LYMPHOCYTES # (AUTO) 0.6 X10^3/uL (1.3-2.9); LYMPHOCYTES % (AUTO) 7.9 % (21.0-51.0); MEAN CORPUSCULAR VOLUME 88.2 fL (80.0-100.0); MEAN PLATELET VOLUME 7.7 fL (7.4-11.0); MONOCYTES # (AUTO) 0.3 x10^3/uL (0.3-0.8); MONOCYTES % (AUTO) 4.5 % (0.0-13.0); NEUTROPHILS # (AUTO) 6.3 x10^3/uL (2.2-4.8); NEUTROPHILS % (AUTO) 87.5 % (42.0-75.0); PLATELET COUNT 200 X10^3/uL (150.0-450.0); RED BLOOD COUNT 4.13 X10^6/uL (4.7-6.0); WHITE BLOOD COUNT 7.1 X10^3/uL (3.6-10.0)
[2019-10-23 06:07] LABS: ALANINE AMINOTRANSFERASE 48 Units/L (12-78); ALBUMIN 2.3 g/dL (3.4-5.0); ALKALINE PHOSPHATASE 60 Units/L (46-116); ASPARTATE AMINO TRANSFERASE 39 Units/L (15-37); BLOOD UREA NITROGEN 14 mg/dL (7-18); CALCIUM 8.2 mg/dL (8.5-10.1); CARBON DIOXIDE 23.7 mmol/L (21-32); CHLORIDE 109 mmol/L (98-107); COR CA(FOR HYPOALB) 9.6 mg/dL (8.5-10.1); COR NA(FOR HYPERGLY) 144 mmol/L (136-145); CREATININE 0.79 mg/dL (0.70-1.30); SODIUM 142 mmol/L (136-145); TOTAL PROTEIN 5.5 g/dL (6.4-8.2); eGFR NON BLACK RACES > 60 (>60)
--- NOTE | 2019-10-23 08:56 | RAD ---
HISTORYSOBSTUDYPortable AP [id number] heart size. Persistent patchy and diffuse bilateral infiltrates with interval improvement. There is no new consolidation, complicating pneumothorax or pleural fluid.IMPRESSIONSlight interval improvement in bilateral pulmonary infiltrates.Electronically signed by: NBA DELCID (Oct 23, 2019 08:55:26)
[2019-10-23] MEDS: PULMICORT NEB TX 0.5 MG NEB SCH (09:00)
[2019-10-23] MEDS: PROVENTIL NEB TX 0.083% 2.5MG/ 3ML NEB SCH (09:00)
[2019-10-23] MEDS: REMDESIVIR (INVESTIGATIONAL DRUG GS-5734) 100 MG in NS 250 ML IV 250 ML IV SCH (09:38)
[2019-10-23] MEDS: LEVAQUIN PREMIX IV 500 MG 500 MG/100 ML BAG IV SCH (10:55)
[2019-10-23 12:37] VITALS: BP 111/65
[2019-10-23] MEDS ORDERED: PREVNAR 13 IM ONE ×2 (13:42→13:52)
[2019-10-23] MEDS ORDERED: REMDESIVIR (INVESTIGATIONAL DRUG GS-5734) 100 MG in NS 250 ML IV 250 ML IV ONE (14:00)
== END 2019-10-23 15:13 | disposition home or self-care (01) ==
LOC: ICU
PROVIDERS: ADMIT Internal Medicine; ATTEND Internal Medicine
DX: R63.4 Abnormal weight loss; E86.0 Dehydration; J20.8 Acute bronchitis due to other specified organisms; I95.89 Other hypotension; R53.1 Weakness; R50.9 Fever, unspecified; R06.02 Shortness of breath; M19.90 Unspecified osteoarthritis, unspecified site; K21.9 Gastro-esophageal reflux disease without esophagitis; U07.1 COVID-19; Z23 Encounter for immunization
CPT/HCPCS: 36415; 36600; 71010; 71045; 74022; 80053; 81003; 82270; 82378; 82728; 82803; 85025; 86140; 87040; 87635; 90670; 94640; 96360; 96361; 96372; 96374; 97161; A4216; A4222; G0378; J1650; J1956; J2920; J3490; J7030; J7050; J7613; J7620; J7626